=== PATIENT | female | born 1960 | race Caucasian/White ===

== ENCOUNTER 2022-12-11 10:18 | Outpatient (CLI) | payer BC ==
[2022-12-11] MEDS ORDERED: Magnevist 469MG/ML 20 ML VIAL ONE (11:10)
== END 2022-12-11 10:19 | disposition home or self-care (01) ==
LOC: CSHMRI 10:18
PROVIDERS: ATTEND Nurse Practitioner Adult Health
DX: R42 Dizziness and giddiness (principal)
CPT/HCPCS: 70553; 82565; A9579